=== PATIENT | female | born 1990 | race Two or more races ===

== ENCOUNTER → 2017-10-27 | Outpatient (CLI) | payer OTHER ==
[~2017-10-27] MED LIST: ASCO500C2 PO; FERR-46 PO; FOLI-17 PO; LEVO75TA5 PO; METF750T2 PO; POLY17PO5 PO
[2017-10-27 08:45] LABS: BASOPHILS # (AUTO) 0.02 x10^3/uL (0-0.1); BASOPHILS % (AUTO) 1 % (0-1); EOSINOPHILS # (AUTO) 0.09 x10^3/uL (0-0.4); EOSINOPHILS % (AUTO) 2 % (1-7); LYMPHOCYTES # (AUTO) 1.68 x10^3/uL (1-3.4); LYMPHOCYTES % (AUTO) 36 % (22-44); MD NO; MEAN CORPUSCULAR HEMOGLOBIN 28.5 pg (27.0-34.8); MEAN CORPUSCULAR HGB CONC 32.8 g/dL (32.4-35.8); MEAN CORPUSCULAR VOLUME 86.9 fL (80-100); MEAN PLATELET VOLUME 7.4 fL (7.4-10.4); MONOCYTES # (AUTO) 0.24 x10^3/uL (0.2-0.8); MONOCYTES % (AUTO) 5 % (2-9); NEUTROPHILS # (AUTO) 2.69 x10^3/uL (1.8-6.8); NEUTROPHILS % (AUTO) 57 % (42-75); PLATELET COUNT 357 x10^3/uL (130-400); RED BLOOD COUNT 3.12 x10^6/uL (3.82-5.3); RED CELL DISTRIBUTION WIDTH 19.2 % (9.6-15.2)
[2017-10-27 08:58] LABS: ALANINE AMINOTRANSFERASE 100 U/L (12-78); ALBUMIN 3.7 g/dL (3.4-5.0); ANION GAP 8 mmol/L (5-15); CALCIUM 8.3 mg/dL (8.5-10.1); CHLORIDE 109 mmol/L (98-107); CREATININE 0.79 mg/dL (0.55-1.02)
[2017-10-27 09:00] LABS: ALKALINE PHOSPHATASE 81 U/L (45-117); BILIRUBIN,TOTAL 0.3 mg/dL (0.2-1.0); TOTAL PROTEIN 7.5 g/dL (6.4-8.2)
== END | disposition home or self-care (01) ==
LOC: STAR 07:34
PROVIDERS: ATTEND Obstetrics & Gynecology Female Pelvic Medicine and Reconstructive Surgery
DX: Z01.818 Encounter for other preprocedural examination (principal); N94.6 Dysmenorrhea, unspecified; N39.3 Stress incontinence (female) (male); N92.6 Irregular menstruation, unspecified
CPT/HCPCS: 36415; 80053; 85025; 93005

== ENCOUNTER 2017-11-01 11:20 | Day surgery (SDC) | payer OTHER ==
[~2017-11-01] VITALS: Ht 175.3 cm; Wt 139.0 kg
[~2017-11-01 11:20] MED LIST changes: +BUPIVACAINE/PF-EPI 0.25% 1:200K ONE; +NEOMY/POLYMYXIN B GU IRR. 1 ML IRRIG ONE
[2017-11-01] MEDS ORDERED: LACTATED RINGERS 1,000 ML IV SCH (11:54)
[2017-11-01 12:55] LABS: HCG UR SG 1.021 (1.003-1.030)
[2017-11-01] MEDS ORDERED: FENTANYL PF 100 MCG/2ML ONE ×2 (14:04→15:29)
[2017-11-01] MEDS ORDERED: PROPOFOL 10 MG/ML, 20ML ONE (14:04)
[2017-11-01] MEDS ORDERED: ONDANSETRON 2MG/ML, 2ML ONE (14:04)
[2017-11-01] MEDS ORDERED: DEXAMETHASONE 4 MG/ML, 1ML ONE (14:04)
[2017-11-01] MEDS ORDERED: CEFAZOLIN 1,000 MG ONE (14:04)
[2017-11-01] MEDS ORDERED: MIDAZOLAM 1 MG/ML, 2ML ONE (14:04)
[2017-11-01] MEDS ORDERED: METOCLOPRAMIDE 5 MG/ML, 2ML ONE (14:04)
[2017-11-01] MEDS ORDERED: NEOSTIGMINE 1 MG/ML, 10ML ONE (14:04)
[2017-11-01] MEDS ORDERED: ROCURONIUM 10 MG/ML,10ML ONE (14:04)
[2017-11-01] MEDS ORDERED: GLYCOPYRROLATE 0.2MG/1ML, 5ML ONE (14:04)
[2017-11-01] MEDS ORDERED: BUPIVACAINE/PF-EPI 0.5% 1:200K ONE (14:34)
[2017-11-01] MEDS ORDERED: BUPIVACAINE/PF-EPI 0.25% 1:200K ONE (14:36)
[2017-11-01] MEDS ORDERED: OXYcodone 5 MG/5 ML ORAL.SOL UDC ONE (15:29)
[2017-11-01] MEDS ORDERED: ONDANSETRON 2MG/ML, 2ML IVPush PRN (15:30)
[2017-11-01] MEDS ORDERED: HYDROmorphone 1 MG/ML, 1ML IV PRN (15:30)
[2017-11-01] MEDS ORDERED: MEPERIDINE/PF 25MG/0.5ML IVPush PRN (15:30)
[2017-11-01] MEDS ORDERED: LABETALOL 5MG/ML, 20ML IV PRN (15:30)
[2017-11-01] MEDS ORDERED: MIDAZOLAM 1 MG/ML, 2ML IV PRN (15:30)
[2017-11-01] MEDS ORDERED: OXYcodone 5 MG/5 ML ORAL.SOL UDC PO PRN (15:30)
[2017-11-01] MEDS: FENTANYL PF 100 MCG/2ML IV PRN ×3 (15:33→16:02)
[2017-11-01] MEDS ORDERED: HYDROmorphone 2 MG/ML, 1ML ONE (16:08)
== END 2017-11-01 18:52 | disposition home or self-care (01) ==
LOC: OUT 11:20
PROVIDERS: ATTEND Obstetrics & Gynecology Female Pelvic Medicine and Reconstructive Surgery
DX: N92.1 Excessive and frequent menstruation with irregular cycle (principal); N81.89 Other female genital prolapse; N94.10 Unspecified dyspareunia; D64.9 Anemia, unspecified; N39.3 Stress incontinence (female) (male); I10 Essential (primary) hypertension; E11.9 Type 2 diabetes mellitus without complications; E03.9 Hypothyroidism, unspecified; Z88.0 Allergy status to penicillin; N87.9 Dysplasia of cervix uteri, unspecified; N83.8 Other noninflammatory disorders of ovary, fallopian tube and broad ligament; Z88.1 Allergy status to other antibiotic agents; Z88.8 Allergy status to other drugs, medicaments and biological substances
CPT/HCPCS: 57265; 57282; 57288; 58552; 81025; 82962; 88307; C1771; J0690; J1100; J1170; J2250; J2405; J2704; J2710; J2765; J3010; J3490; J7120

== ENCOUNTER 2018-10-19 10:44 | Emergency (ER) | payer OTHER ==
[~2018-10-19] VITALS: Ht 175.3 cm; Wt 135.2 kg
[2018-10-19 10:54] VITALS: BP 184/104
== END 2018-10-19 13:21 | disposition home or self-care (01) ==
LOC: ED 12:25
DX: H10.12 Acute atopic conjunctivitis, left eye (principal); I10 Essential (primary) hypertension; E11.9 Type 2 diabetes mellitus without complications; Z88.1 Allergy status to other antibiotic agents
CPT/HCPCS: 93005; 99283